=== PATIENT | male | born 1995 | race Caucasian/White ===

== ENCOUNTER 2018-05-12 09:01 | Emergency (ER) | payer BC, OTHER ==
[~2018-05-12] VITALS: Ht 180.3 cm; Wt 111.1 kg
[~2018-05-12 09:01] MED LIST: OXYC-323 PO
[2018-05-12 09:30] VITALS: BP 159/81
--- NOTE | 2018-05-12 09:45 | PHYS DOC ---
Past Medical History Past Medical History: Other Additional Past Medical Histor: FATTY LIVER Past Surgical History: No Surgical History Alcohol Use: Rarely Drug Use: None Adult General Chief Complaint Chief Complaint: LACERATION/AVULSION HPI HPI Patient is a 22 year old male who presents with left thumb laceration, patient accidentally cut himself with a steam box tender. He is right-handed. He works at [employer]. Review of Systems Review of Systems Constitutional: Denies fever or chills [] Musculoskeletal: Denies back pain or joint pain [] Integument: Left thumb laceration Neurologic: Denies headache, focal weakness or sensory changes [] All other systems were reviewed and found to be within normal limits, except as documented in this note. Current Medications Current Medications Current Medications Medications (Trade) Dose Ordered Sig/Nguyen Start Time Stop Time Status Last Admin Dose Admin Diphtheria/ Tetanus/Acell Pertussis (Boostrix) 0.5 ml ONCE ONCE 05/12/18 09:45 05/12/18 09:46 DC 05/12/18 10:22 0.5 ML Lidocaine/Sodium Bicarbonate (Buffered Lidocaine 1%) 3 ml 1X ONCE 05/12/18 09:45 05/12/18 09:46 DC 05/12/18 10:23 3 ML Allergies Allergies Allergies Coded Allergies Type Severity Reaction Last Updated Verified No Known Drug Allergies 05/08/16 No Physical Exam Physical Exam Constitutional: Well developed, well nourished, no acute distress, non-toxic appearance. [] Skin: Left lateral distal thumb just beside the nail bed with a laceration approximately 2 cm long. There is no obvious tendon involvement. Patient able to flex and extend the finger . +2 left radial pulse. Adequate radius sensation to the thumb. Cap refill less than 2 seconds the thumb. Back: No tenderness, no CVA tenderness. [] Extremities: No tenderness, no cyanosis, no clubbing, ROM intact, no edema. [] Neurologic: Alert and oriented X 3, normal motor function, normal sensory function, no focal deficits noted. [] Psychologic: Affect normal, judgement normal, mood normal. [] Current Patient Data Vital Signs Vital Signs Date Time Temp Pulse Resp B/P (MAP) Pulse Ox O2 Delivery O2 Flow Rate FiO2 05/12/18 09:30 98.1 92 18 159/81 (107) 99 Room Air 98.1 EKG EKG [] Radiology/Procedures Radiology/Procedures Laceration/Wound Repair Wound Location: Left thumb laceration Wound's Depth, Shape: Vertical Wound Length (cm): Approximately 2 cm Wound Explored: clean Irrigated w/ Saline (ccs): 20 Betadine Prep?: Betadine Anesthesia: 1% buffered lidocaine Volume Anesthetic (ccs): Approximately 2 mL Wound Repaired With: Ethilon Suture Size/Type: 5.0/interrupted sutures Number of Sutures: 3 Progress : Wound was covered with nonstick dressing Course & Med Decision Making Course & Med Decision Making Pertinent Labs and Imaging studies reviewed. (See chart for details) Patient has left thumb laceration that was repaired by me as noted in procedures. Tetanus updated. Wound care instructions and return precautions provided. Dragon Disclaimer Dragon Disclaimer This electronic medical record was generated, in whole or in part, using a voice recognition dictation system. Departure Departure Impression: Primary Impression: Laceration of left thumb Disposition: HOME, SELF-CARE Condition: STABLE Referrals: PRESTON RIOS APRN (PCP) Follow-up with your doctor or the emergency room in 7-10 days for suture removal Patient Instructions: Fingertip Laceration Additional Instructions: You have left thumb laceration that was repaired with stitches. You can shower and wash your hands. Keep the area clean and dry. Apply Neosporin to the area twice a day. Monitor the area for any signs of infection including but not limited to increased redness to the area, warmth to the area, yellow/odor is drainage from the area and return to the ED. Follow up with your own doctor or the emergency room in 7-10 days for stitches removal Problem Qualifiers Primary Impression: Laceration of left thumb Encounter type: initial encounter Damage to nail status: without damage Foreign body presence: unspecified Qualified Codes: S61.012A - Laceration without foreign body of left thumb without damage to nail, initial encounter PALOMA DANIELSON APRN May 12, 2018 09:45
[2018-05-12] MEDS: DIPHTH,PERTUSS(ACELL),TET TOX 0.5 ML DISP.SYRIN. VAX IM ONE (10:22)
[2018-05-12] MEDS: LIDOCAINE WITH 8.4% SOD BICARB 3 ML DISP.SYRIN. INJ ONE (10:23)
== END 2018-05-12 10:58 | disposition home or self-care (01) ==
LOC: ER 09:01
DX: S61.012A Laceration without foreign body of left thumb without damage to nail, initial encounter (principal); W26.8XXA Contact with other sharp object(s), not elsewhere classified, initial encounter; Y93.89 Activity, other specified; Y92.89 Other specified places as the place of occurrence of the external cause; Y99.8 Other external cause status
CPT/HCPCS: 12001; 90471; 90715; 99283

== ENCOUNTER → 2018-06-24 | Outpatient (CLI) | payer OTHER ==
[~2018-06-24] MED LIST changes: -OXYC-323 PO; +OXYC1TAB15 PO
--- NOTE | 2018-06-24 15:58 | KCIC ---
Indication:Left knee injury. TECHNIQUE: 3 views of the left knee COMPARISON:None FINDINGS/ impression: No acute fracture or dislocation. No suprapatellar effusion. Electronically signed by: Kodi So DO (06/24/2018 3:54 PM) [facility]
== END | disposition home or self-care (01) ==
LOC: KCIC 15:36
PROVIDERS: ATTEND Nurse Practitioner Family
DX: S89.92XD Unspecified injury of left lower leg, subsequent encounter (principal); M25.562 Pain in left knee; X58.XXXD Exposure to other specified factors, subsequent encounter
CPT/HCPCS: 73562